=== PATIENT | female | born 1965 | race Two or more races ===

== ENCOUNTER → 2024-08-30 | Outpatient (CLI) | payer MEDICAID, SELFPAY ==
--- NOTE | 2024-08-30 13:00 | XR_ITS ---
Examination: Diagnostic digital mammography, unilateral, right Computer aided detection 3-D breast Tomosynthesis, unilateral Date and time of exam: August 30, 2024 at 1346 hours INDICATIONS: Mammogram November 27, 2023 10 mm focal asymmetry upper outer right breast Technique: Nonmagnified MLO, CC views of the right breast have been obtained, reconstructed from 3-D Tomosynthesis images. R2 computer aided detection program utilized for evaluation of suspicious masses and/or abnormal calcifications. 3-D Tomosynthesis images obtained. Findings: The breast is heterogeneously dense, which may obscure small masses Stable focal asymmetry upper outer right breast Impression: BI-RADS category 2: Benign findings Six-month mammography follow-up recommended
== END | disposition home or self-care (01) ==
PROVIDERS: PCP Family Medicine; Referring Provider Family Medicine; Visit Provider Family Medicine
DX: R92.321 Mammographic fibroglandular density, right breast (principal)
CPT/HCPCS: 77061; 77065; G0279

== ENCOUNTER 2024-08-31 05:50 | Inpatient (IN) | payer MEDICAID, SELFPAY ==
--- NOTE | 2024-08-27 08:05 | ESHP_ITS ---
RE: LELAND RAMÍREZ : 1965 DATE OF ADMISSION: 09/07/2024 HISTORY OF PRESENT ILLNESS: This is a 58-year-old 1, para 1 with symptomatic uterine fibroids presenting for hysterectomy. The patient continues to have chronic pelvic pain, deep dyspareunia and abnormal uterine bleeding. ALLERGIES: NO KNOWN DRUG ALLERGIES. MEDICATIONS: 1. Omeprazole 20 mg 1 p.o. daily. 2. CombiPatch, hormone replacement therapy, apply patch twice weekly. 3. Venlafaxine 150 mg p.o. 1 daily to prevent hot flushes. PAST MEDICAL HISTORY: Leiomyomatous uterus, endometrial polyp. SOCIAL HISTORY: She denies any alcohol, drug use or smoking. FAMILY HISTORY: Denies. PAST SURGICAL HISTORY: delivery, incisional hernia repair, colonoscopy. REVIEW OF SYSTEMS: She denies any chest pain, palpitations, cough, fever, shortness of breath, or lower extremity pain. PHYSICAL EXAMINATION: VITAL SIGNS: Blood pressure is 116/69, heart rate 81, respirations 18, temperature 98.2. Weight 156 pounds. HEENT: Oropharynx and sclerae are clear. LUNGS: Clear to auscultation bilaterally. HEART: Regular rate and rhythm. ABDOMEN: Old Pfannenstiel scar noted. EXTREMITIES: Nontender. SKIN: No gross rashes or lesions. NEUROLOGIC: No focal deficits. ASSESSMENT: 1. Abnormal uterine bleeding. 2. Leiomyomatous uterus. 3. Dysmenorrhea. 4. Chronic pelvic pain. PLAN: Total abdominal hysterectomy, bilateral salpingo-oophorectomy. Informed consent was obtained. The patient was made aware of the risks, complications, alternatives, and benefits of the proposed procedure and she agrees. She is aware of the risk of injury to bowel or bladder, ureters, adjacent organs, nerve injury to the legs and skin, pulmonary embolism, deep vein thrombosis, injury to the vessels of the abdominal wall, hematoma, abscess, wound infection, wound dehiscence, pelvic infection, reoperation to repair injury to internal organs, anesthesia complications, the need for future surgery to remove ovaries or tubes. The need to take hormone therapy with its associated risks, uncontrollable loss of urine problems, prolapse of the vagina, and rarely . DT: 14:27:23 TT: 15:04:00 Ref: [id number] - TID: [id number] MTDD
[2024-08-30 11:47] VITALS: BMI 32.3
[2024-08-30 12:27] LABS: Basophils # (Auto) 0.1 Thou/mm3 (0.0-0.2); Basophils % (Auto) 1 % (0-2.5); Eosinophils # (Auto) 0.3 Thou/mm3 (0.0-0.5); Eosinophils % (Auto) 4 % (0-10); Hematocrit 41.2 % (36.0-46.0); Hemoglobin 14.3 g/dL (12.0-16.0); Immature Granulocytes % (Auto) 0 % (0-0); Immature Granulocytes Auto 0.02 Thou/mm3 (0.00-0.00); Lymphocytes # (Auto) 3.6 Thou/mm3 (1.0-4.8); Lymphocytes % (Auto) 44 % (10-50); Mean Corpuscular HGB Conc 34.7 g/dl (31.0-37.0); Mean Corpuscular Volume 86 fL (80-100); Monocytes # (Auto) 0.6 Thou/mm3 (0.0-0.8); Monocytes % (Auto) 7 % (0-12); Neutrophils # (Auto) 3.7 Thou/mm3 (1.8-7.7); Neutrophils % (Auto) 45 % (37-80); Nucleated Red Blood Cell % 0 /100 WBC (0); Platelet Count 201 Thou/mm3 (140-440); RDW Standard Deviation 39.7 fL (36.4-46.3); Red Blood Count 4.77 Miln/mm3 (4.00-5.20); White Blood Count 8.4 Thou/mm3 (3.6-11.0)
[2024-08-30 12:40] LABS: INR 0.9 (0.9-1.3); Partial Thromboplastin Time 23.9 Seconds (22.0-36.0); Prothrombin Time 10.4 Seconds (9.0-12.2)
[2024-08-30 13:23] LABS: Alanine Aminotransferase < 7 U/L (10-49); Albumin, Serum 4.7 gm/dL (3.5-5.0); Alkaline Phosphatase 67 U/L (46-116); Anion Gap 7 (7-16); Aspartate Amino Transferase 11 U/L (0-34); BUN/Creatinine Ratio 15 Ratio (12-20); Beta HCG,Quantitative 1 mIU/mL (<5.0); Bilirubin,Total 0.7 mg/dL (0.3-1.2); Blood Urea Nitrogen 12 mg/dL (9-23); Calcium 9.8 mg/dL (8.3-10.6); Calcium (Corrected) 9.8 mg/dL (8.5-10.1); Carbon Dioxide 24.9 mMol/L (20.0-31.0); Chloride 109 mMol/L (98-107); Creatinine (Component) 0.8 mg/dL (0.6-1.3); Estimated Creatinine Clearance 74.1 mL/min (>60); Globulin 2.4 gm/dL (2.3-3.5); Glucose 89 mg/dL (74-106); Osmolality,Calculated 279 (275-295); Sodium 141 mMol/L (136-145); Total Protein 7.1 gm/dL (5.7-8.2); eGFR > 60 See Note
[2024-08-31] VITALS (19 sets, daily range): BP systolic 128–179; BP diastolic 83–115; PULSE 59–71; RESP 12–98; TEMP 36.1–36.6; O2SAT 95–100; BMI 34.2; BMI 33.4
--- NOTE | 2024-08-31 06:28 | PD.GYNHP ---
Documentation for date of: 08/31/24 ENGINEERING PROGRAMMER - HPI History of Present Illness History of present illness: [address] [id number] History and Physical Report Author: Gurwinder Gan: LELAND RAMÍREZ : 1965 DATE OF ADMISSION: 09/07/2024 HISTORY OF PRESENT ILLNESS: This is a 58-year-old 1, para 1 with symptomatic uterine fibroids presenting for hysterectomy. The patient continues to have chronic pelvic pain, deep dyspareunia and abnormal uterine bleeding. ALLERGIES: NO KNOWN DRUG ALLERGIES. MEDICATIONS: 1. Omeprazole 20 mg 1 p.o. daily. 2. CombiPatch, hormone replacement therapy, apply patch twice weekly. 3. Venlafaxine 150 mg p.o. 1 daily to prevent hot flushes. PAST MEDICAL HISTORY: Leiomyomatous uterus, endometrial polyp. SOCIAL HISTORY: She denies any alcohol, drug use or smoking. FAMILY HISTORY: Denies. PAST SURGICAL HISTORY: delivery, incisional hernia repair, colonoscopy. REVIEW OF SYSTEMS: She denies any chest pain, palpitations, cough, fever, shortness of breath, or lower extremity pain. PHYSICAL EXAMINATION: VITAL SIGNS: Blood pressure is 116/69, heart rate 81, respirations 18, temperature 98.2. Weight 156 pounds. HEENT: Oropharynx and sclerae are clear. LUNGS: Clear to auscultation bilaterally. HEART: Regular rate and rhythm. ABDOMEN: Old Pfannenstiel scar noted. EXTREMITIES: Nontender. SKIN: No gross rashes or lesions. NEUROLOGIC: No focal deficits. ASSESSMENT: 1. Abnormal uterine bleeding. 2. Leiomyomatous uterus. 3. Dysmenorrhea. 4. Chronic pelvic pain. PLAN: Total abdominal hysterectomy, bilateral salpingo-oophorectomy. Informed consent was obtained. The patient was made aware of the risks, complications, alternatives, and benefits of the proposed procedure and she agrees. She is aware of the risk of injury to bowel or bladder, ureters, adjacent organs, nerve injury to the legs and skin, pulmonary embolism, deep vein thrombosis, injury to the vessels of the abdominal wall, hematoma, abscess, wound infection, wound dehiscence, pelvic infection, reoperation to repair injury to internal organs, anesthesia complications, the need for future surgery to remove ovaries or tubes. The need to take hormone therapy with its associated risks, uncontrollable loss of urine problems, prolapse of the vagina, and rarely . DT: 14:27:23 TT: 15:04:00 Ref: [id number] - TID: [id number] CC: ; ~ Dictated by:Gurwinder Gan MD 08/26/24 1427 E-signed by:Gurwinder Gan MD 08/27/24 1112 E-Signed by: E-Signed by: REPORT NO:[id number] Meds Home Medications and Allergies Home Medications ?Medication ?Instructions ?Recorded ?Confirmed ?Type hydroxyzine HCl 25 mg tablet 50 mg PO HS Itching 12/25/23 08/30/24 History albuterol sulfate 90 mcg/actuation 2 inh inhalation QID PRN shortness 08/30/24 08/30/24 History aerosol inhaler of breath or wheezing [id number]-bkzx 160 mg/mL 320 mg subcut QOWEEK 08/30/24 08/30/24 History subcutaneous auto-injector (Bimzelx Autoinjector) cetirizine 10 mg tablet 10 mg PO QDAY 08/30/24 08/30/24 History dupilumab 300 mg/2 mL subcutaneous 300 mg subcut QOWEEK 08/30/24 08/30/24 History pen injector (Dupixent) ibuprofen 800 mg tablet 800 mg PO Q8H PRN pain 08/30/24 08/30/24 History linaclotide 290 mcg capsule 290 mcg PO QAM 08/30/24 08/30/24 History (Linzess) Allergies Allergy/AdvReac Type Severity Reaction Status Date / Time No Known Allergies Allergy Verified 08/31/24 06:19 ENGINEERING PROGRAMMER - Results Labs 08/30/24 12:10 08/30/24 12:10 Labs: Short CBC 08/30/24 Range/Units 12:10 WBC 8.4 (3.6-11.0) Thou/mm3 Hgb 14.3 (12.0-16.0) g/dL Hct 41.2 (36.0-46.0) % Plt Count 201 (140-440) Thou/mm3 BMP 08/30/24 12:10 Sodium 141 Potassium 4.0 Chloride 109 H Carbon Dioxide 24.9 BUN 12 Creatinine 0.8 Glucose 89 Calcium 9.8 Liver Function 08/30/24 Range/Units 12:10 Total Bilirubin 0.7 (0.3-1.2) mg/dL AST 11 (0-34) U/L ALT < 7 L (10-49) U/L Alkaline Phosphatase 67 (46-116) U/L Albumin 4.7 (3.5-5.0) gm/dL Quality Measures Quality Measures VTE prophylaxis
[2024-08-31] MEDS: RINGERS LACTATED 1000 ML 1,000 ML 30 ML IV ×2 (06:34→12:29)
--- NOTE | 2024-08-31 07:08 | EKG_ITS ---
[facility] Test Date: 2024-08-31 Pat Name: LELAND RAMÍREZ [facility] Painter Chassis: AUGUSTINA : 1965 Requested By: Johnathan Martinez Order Number: [id number] Reading MD: Johnathan Martinez Measurements Intervals Powell Rate: 56 P: 23 AK: 140 QRS: 17 QRSD: 83 T: 12 QT: 401 QTc: 389 Interpretive Statements SINUS BRADYCARDIA Compared to ECG 04/17/2020 10:20:02 Sinus rhythm no longer present /store/S0/[id number].pdf
--- NOTE | 2024-08-31 07:15 | CHAP ---
Visited with patient before her procedure and gave encouragement and prayer.
--- NOTE | 2024-08-31 12:10 | SUR.PHASEI ---
1210: Pt. AAOx4, vitals stable, breathing unlabored, complaint of pain, will give pain med, dressing to lower ABD CDI, peripad in place CDI, no active bleed noted, coronado catheter in place draining clear yellow urine, report received from MD Martinez and Herrera VANEGAS.
[2024-08-31] MEDS: fentaNYL CIT INJ 50 mCg/ML AMP 2ML 25 MCG IV ×2 (12:16→12:52)
[2024-08-31] MEDS: ONDANSETRON INJ 2 MG/ML INJ 2 ML 4 MG IV ×2 (12:17→15:42)
[2024-08-31] MEDS: Morphine Sulfate PF 1 MG/ML PCA VIAL 30 ML 30 MG IV (12:21)
[2024-08-31] MEDS: SCOPOLAMINE 1 MG TDSY TOP (12:40)
[2024-08-31] MEDS: HYDROmorphone INJ 2 MG/ML VIAL 0.4 MG IVP (13:36)
--- NOTE | 2024-08-31 13:40 | SUR.PHASEI ---
1340: Report given to Neda VANEGAS to resume care of pt. Pt. AAOx4, vitals stable, breathing unlabored, complaint of pain, pt. connected to REVOLVING FIELD ASSEMBLER. Dressing CDI.
--- NOTE | 2024-08-31 13:46 | SUR.PHASEI ---
1340: Assumed care. Pt resting more quietly at this time with less complaints of abdominal pain. Pt just received dose of pain medication Dilaudid 0.4mg IV. BP elevated most likely due to pain experience. BP elevated upon arrival to PACU. Dressing to abdomen dry, clean, intact. Abdominal binder was placed earlier. Wolf to gravity draining clear yellow urine. Morphine WELDING LEAD BURNER in use.
--- NOTE | 2024-08-31 14:03 | SUR.PHASEI ---
1400: Transfer nurse available for report. Report given. Pt transferred to Rm 365 in stable condition.
--- NOTE | 2024-08-31 14:38 | PC.NURSE ---
Patient arrived in Med Surg unit around 14:02 PM via gurney. Patient on [facility] pump. Assisted patient to bed, provided safety and comfort. Patient complains of pain. Patient's BP is 169/100, per PACU nurse Kalani it is because of the pain and anxiety.
[2024-08-31] MEDS: KETOROLAC INJ 30 MG/ML VIAL IVP (14:47)
[2024-08-31] MEDS: ceFAZolin/D5W 2 GM IV 2 GM/100 ML BAG IV ×2 (14:47→21:16)
[2024-08-31 16:43] LABS: Basophils % (Auto) 0 % (0-2.5); Eosinophils % (Auto) 0 % (0-10); Hematocrit 38.5 % (36.0-46.0); Hemoglobin 13.4 g/dL (12.0-16.0); Immature Granulocytes % (Auto) 0 % (0-0); Immature Granulocytes Auto 0.05 Thou/mm3 (0.00-0.00); Lymphocytes # (Auto) 1.2 Thou/mm3 (1.0-4.8); Lymphocytes % (Auto) 8 % (10-50); Mean Corpuscular HGB Conc 34.8 g/dl (31.0-37.0); Mean Corpuscular Hemoglobin 30.4 pg (25.0-35.0); Mean Corpuscular Volume 87 fL (80-100); Monocytes # (Auto) 0.1 Thou/mm3 (0.0-0.8); Monocytes % (Auto) 1 % (0-12); Neutrophils # (Auto) 13.9 Thou/mm3 (1.8-7.7); Neutrophils % (Auto) 91 % (37-80); Nucleated Red Blood Cell % 0 /100 WBC (0); Platelet Count 122 Thou/mm3 (140-440); RDW Standard Deviation 40.8 fL (36.4-46.3); Red Blood Count 4.41 Miln/mm3 (4.00-5.20); White Blood Count 15.3 Thou/mm3 (3.6-11.0)
[2024-09-01] VITALS (12 sets, daily range): BP systolic 96–165; BP diastolic 69–95; PULSE 57–92; RESP 14–19; TEMP 36.2–36.9; O2SAT 92–100
[2024-09-01] MEDS: ceFAZolin/D5W 2 GM IV 2 GM/100 ML BAG IV ×3 (05:36→21:15)
--- NOTE | 2024-09-01 06:59 | ESPR_ITS ---
RE: LELAND RAMÍREZ : 1965 DATE OF SERVICE: 09/01/2024 SUBJECTIVE: Postop day #1, the patient denies any problem or complaint. She has got adequate urine output with Wolf catheter in place. She denies any excessive vaginal bleeding. She denies any dizziness or lightheadedness. She denies any chest pain, palpitations, shortness of breath, or lower extremity pain. She is tolerating a regular diet. She is passing flatus. She has adequate pain relief with the morphine GREEN MATERIAL VALUE ADDED ASSESSOR. OBJECTIVE: Vital Signs: Blood pressure 157/86 mmHg, heart rate 61, respirations 14, temperature 98.4 degrees Fahrenheit. Lungs: Clear to auscultation bilaterally. Heart: Regular rate and rhythm. Abdomen: Dressing dry and intact. Extremities: Nontender. LABORATORY DATA: Hemoglobin pre-surgery is 14.3 g/dL, post surgery is 13.4 g/dL. ASSESSMENT: Postoperative day #1, status post subtotal abnormal hysterectomy, bilateral salpingo-oophorectomy. PLAN: Remove dressing. Discontinue GREEN MATERIAL VALUE ADDED ASSESSOR. Begin oral pain medication. Encourage ambulation. Monitor for spontaneous voiding. Possible discharge home tomorrow. I discussed with the patient the nature of her condition, the intraoperative findings, expectation for recovery. All questions were answered. DT: 06:21:14 TT: 06:58:00 Ref: [id number] - TID: [id number]
[2024-09-01] MEDS: ENOXAPARIN SOD INJ 40 MG/0.4 ML SYRINGE SC (08:31)
[2024-09-01] MEDS: DOCUSATE SOD 100 MG CAPSULE PO (08:31)
[2024-09-01] MEDS: HYDROcodone/APAP 10/325 TAB PO ×2 (09:54→21:13)
[2024-09-01] MEDS: HYDROmorphone INJ 2 MG/ML VIAL 0.5 MG IVP ×2 (11:29→17:00)
--- NOTE | 2024-09-01 15:21 | PC.SS ---
SS met with patient who is alert/oriented. Patient was able to verify demographics. Patient is independent with ADL's. Patient was admitted for hysterectomy. Patient states she's independent with ADL's. Patient resides with family. Patient PCP: Dr. Somers. Patient pharmacy: [facility]. Patient states her alt medical decision maker is her spouse, Chito Vuong, . Transportation: spouse D/c plan: home no needs
[2024-09-01] MEDS: RINGERS LACTATED 1000 ML 1,000 ML 100 ML IV (21:16)
[2024-09-02] VITALS: BP 126/76; PULSE 62; RESP 16; TEMP 36.2; O2SAT 94
[2024-09-02] MEDS: HYDROmorphone INJ 2 MG/ML VIAL 0.5 MG IVP ×4 (00:03→13:06)
[2024-09-02 04:00] VITALS: BP 123/70; PULSE 69; RESP 18; TEMP 36.1; O2SAT 95
[2024-09-02] MEDS: ceFAZolin/D5W 2 GM IV 2 GM/100 ML BAG IV (05:34)
[2024-09-02 07:50] VITALS: PULSE 78; RESP 18; O2SAT 96
[2024-09-02 08:00] VITALS: BP 109/82; PULSE 61; RESP 18; TEMP 36.3; O2SAT 95
[2024-09-02] MEDS: ENOXAPARIN SOD INJ 40 MG/0.4 ML SYRINGE SC (08:52)
[2024-09-02] MEDS: DOCUSATE SOD 100 MG CAPSULE PO (08:53)
[2024-09-02] MEDS: ONDANSETRON INJ 2 MG/ML INJ 2 ML 4 MG IV (08:59)
--- NOTE | 2024-09-02 10:04 | ESPR_ITS ---
RE: LELAND RAMÍREZ : 1965 DATE OF SERVICE: 09/02/2024 S: Postop day #2, the patient denies any problem or complaints. She is voiding. She is ambulating. She tolerated regular diet. She is passing flatus. She denies any excessive vaginal bleeding. She denies any dizziness or lightheadedness. She denies any chest pain, palpitations, shortness of breath, or lower extremity pain. O: Vital Signs: Blood pressure 123/70, heart rate 69, respirations 18, temperature 97.0, and pulse oximetry 95% on room air. Lungs: Clear to auscultation bilaterally. Heart: Regular rate and rhythm. Abdomen: Incision clear and intact, nondistended. Extremities: Nontender. A: Postop day #2, status post subtotal abdominal hysterectomy, bilateral salpingo-oophorectomy. P: Discharge home. Discharge instructions given. Follow up in the office in 1 week. DT: 07:40:44 TT: 10:03:00 Ref: [id number] - TID: [id number]
--- NOTE | 2024-09-02 10:36 | ESDS_ITS ---
RE: LELAND RAMÍREZ : 1965 DATE OF ADMISSION: 08/31/2024 HOSPITAL COURSE: This is a 58-year-old who was admitted on 08/31 and underwent a subtotal abdominal hysterectomy, bilateral salpingo-oophorectomy with lysis of adhesions for abnormal uterine bleeding, leiomyomatous uterus, dysmenorrhea, and chronic pelvic pain. Her postoperative course was unremarkable. She was discharged home on postoperative day #2. Pathology showed adenomyosis. DISCHARGE DIAGNOSES: 1. Abnormal uterine bleeding. 2. Leiomyomatous uterus. 3. Dysmenorrhea. 4. Chronic pelvic pain. 5. Adenomyosis. 6. Subtotal abdominal hysterectomy. 7. Bilateral salpingo-oophorectomy. DT: 07:42:42 TT: 10:35:00 Ref: [id number] - TID: [id number]
[2024-09-02 12:00] VITALS: BP 116/72; PULSE 64; RESP 18; TEMP 36.4; O2SAT 96
--- NOTE | 2024-09-02 15:26 | ESOP_ITS ---
RE: LELAND RAMÍREZ : 1965 DATE OF OPERATION: 08/31/2024 PREOPERATIVE DIAGNOSES: 1. Abnormal uterine bleeding. 2. Leiomyomatous uterus. 3. Dysmenorrhea. 4. Chronic pelvic pain. POSTOPERATIVE DIAGNOSES: 1. Abnormal uterine bleeding. 2. Leiomyomatous uterus. 3. Dysmenorrhea. 4. Chronic pelvic pain. 5. Pelvic adhesions. PROCEDURE PERFORMED: Subtotal abdominal hysterectomy, bilateral salpingo- oophorectomy, and lysis of adhesions. SURGEON: Gurwinder Gan DO WAREHOUSE PACKAGING SUPERVISOR: STEFANIE Mendosa ANESTHESIA: General. ANESTHESIOLOGIST: Dr. Martinez. ESTIMATED BLOOD LOSS: 50 mL. URINE OUTPUT: See RN notes. IV FLUIDS: See anesthesia notes. COMPLICATIONS: None. COUNTS: Correct x3. PATHOLOGY: 1. Bilateral fallopian tubes. 2. Bilateral ovaries. 3. Uterus. FINDINGS: Normal-sized uterus with normal-appearing left and right ovaries and fallopian tubes. Bladder adherent to the cervix with severe adhesions. DESCRIPTION OF PROCEDURE: The risks, benefits, indications, and alternatives of the procedure were reviewed with the patient. Informed consent was obtained. She was taken to the operating room with IV running. She received antibiotics prior to the procedure. ELLEN hose and Flowtrons were in place. She was placed in the supine position on the operating room table. She underwent induction of general anesthesia. A Wolf catheter was placed. She was prepped and draped in the usual sterile fashion. A timeout was performed. A Pfannenstiel skin incision was made with the scalpel carried through to the underlying layer of fascia with the Bovie. The fascia was nicked in the midline incision and extended bilaterally with the Bovie. The inferior aspect of the fascial incision was grasped with Beckie clamps and elevated. The underlying rectus muscle dissected off with the Bovie. The rectus muscles were at the midline. The peritoneum identified between 2 Pineda clamps and entered sharply with the Metzenbaum scissors. The incision was extended superiorly and inferiorly with good visualization of the bladder. The patient was placed in slight Trendelenburg. The O'Antony-O'Lundy retractor was placed and the bowel packed away with 3 moist laparotomy pads and the upper and lower retractors were attached to the O'Antony-O'Lundy retractor. The round ligaments on each side were then doubly clamped with Beckie clamps, transected, and suture ligated with 0 Vicryl. The anterior leaf of the broad ligament was incised along the bladder reflection to midline from both sides. There were severe adhesions of the bladder to the lower uterine segment. Therefore, the cervix was left. The EnSeal X1 large jaw device was then used to grasp the utero-ovarian ligament on both sides and it was clamped, fulgurated, and transected and hemostasis was achieved. The broad ligament on both sides were then clamped with the EnSeal X1 large jaw, fulgurated, transected, and hemostasis was achieved. The uterine arteries on both sides were then clamped with the EnSeal X1 large jaw, fulgurated, transected, and hemostasis was achieved. The uterus was amputated from the endocervix using the scalpel and the cervical stump was closed with a series of interrupted [id number] 2-0 Vicryl sutures and hemostasis was achieved. Attention was then turned to each adnexa. The right ovary and fallopian tube was grasped with the [place] clamp and using the EnSeal X1 large jaw, a right salpingo-oophorectomy was performed. Attention was then turned to the left ovary and fallopian tube, which was grasped with the [place] clamp and using the EnSeal X1 large jaw, the infundibulopelvic ligament was fulgurated, transected, and hemostasis was achieved. There was no bleeding at the end of the procedure. The pelvis was copiously irrigated with warm saline solution. There was no bleeding noted and the O'Antony-O'Lundy retractor was removed and 3 moist laparotomy pads were removed and a lap pad count was correct. The peritoneum closed with #0 chromic catgut suture in running fashion. The muscle was closed with a chromic catgut suture in running fashion. The fascia was closed with #0 Vicryl between each angle and ending center in running fashion. Subcutaneous tissue was irrigated with normal saline solution, found to be hemostatic, closed with 2-0 chromic catgut suture in running fashion. The skin was closed with 4-0 Monocryl. A Dermabond, Prineo dressing was applied. A sterile pressure dressing was applied. She tolerated the procedure well. Counts were correct. I discussed with the patient's daughter, the nature of her condition, the intraoperative findings, expectation for recovery. All questions were answered. DT: 11:54:38 TT: 16:14:00 Ref: [id number] - TID: [id number]
== END 2024-09-02 13:42 | disposition home or self-care (01) | DRG 519 ==
LOC: S2W1 12:01 → S3NX 14:04
PROVIDERS: Admitting Provider Specialist; PCP Family Medicine; Visit Provider Specialist
PROC: 0UT90ZZ Resection of Uterus, Open Approach (ICD-10-PCS; principal; 2024-08-31 07:30)
DX: D25.9 Leiomyoma of uterus, unspecified (principal); G89.29 Other chronic pain; N94.12 Deep dyspareunia; R10.2 Pelvic and perineal pain; N94.6 Dysmenorrhea, unspecified; N73.6 Female pelvic peritoneal adhesions (postinfective); N80.03 Adenomyosis of the uterus
CPT/HCPCS: 36415; 80053; 84702; 85025; 85610; 85730; 86850; 86900; 86901; 93005; 94664; A4217; A4649; J0131; J0689; J0690; J1100; J1650; J1885; J2250; J2270; J2405; J2704; J3010; J3490; J7050; J7120; A9270